=== PATIENT | male | born 1970 ===

== ENCOUNTER → 2021-09-10 | Outpatient (CLI) | payer SELFPAY ==
[2021-09-10 20:33] LABS: Percent Saturation 35.5 % (20.0-50.0)
== END ==
LOC: LAB SHORT 09:58
PROVIDERS: Internal Medicine Hematology & Oncology
DX: D64.9 Anemia, unspecified (principal); E53.8 Deficiency of other specified B group vitamins
CPT/HCPCS: 82607; 82728; 82746; 83540; 83550